=== PATIENT | female | born 1955 | race Caucasian/White ===

== ENCOUNTER 2017-01-21 13:08 | Inpatient (IN) | payer OTHER ==
--- NOTE | 2017-01-21 13:15 | EDM.PDOC ---
ED HPI GENERAL MEDICAL PROBLEM - General Chief Complaint: Gastrointestinal Problem Stated Complaint: VOMITING Time Seen by Provider: 01/21/17 13:13 Source of Information: Reports: Patient History Limitations: Reports: No Limitations - History of Present Illness INITIAL COMMENTS - FREE TEXT/NARRATIVE: HISTORY AND PHYSICAL: []61-year-old female with a cast on her right foot /ankle presents with vomiting last night History of Present Illness: []Cast was placed on her foot 5 days ago. In [place], [place] Abdominal pain and vomiting since last night. Patient has been vomiting every time she has had pain medicine. Patient has not had a bowel movement for the last 5 days. Current medication includes [place], aspirin dulcosate. Patient has had a hysterectomy and bladder sling Review of Systems: As per history of present illness and below otherwise all systems reviewed and negative. Past medical history: As per history of present illness and as reviewed below otherwise noncontributory. Surgical history: As per history of present illness and as reviewed below otherwise noncontributory. Social history: No reported history of drug or alcohol abuse. Family history: As per history of present illness and as reviewed below otherwise noncontributory. Physical exam: Alert and oriented female looks to be in mild distress. Speaking in 3-4 words at a time, some shortness of breath present. HEENT: Atraumatic, normocehpalic, pupils reactive, negative for conjunctival pallor or scleral icterus, mucous membranes moist, throat clear, neck supple, nontender, trachea midline. Lungs: Clear to auscultation, breath sounds equal bilaterally, chest non tender. Heart: S1S2, regular, negative for clicks, rubs, or JVD. Abdomen: Soft, nondistended, tenderness generalized. Negative for masses or hepatossplenmegaly. Negative for costovertebral tenderness. Pelvis: Stable nontender. Genitourinary: Deferred. Rectal: Deferred Extremities: Atraumatic, negative for cords or calf pain. Neurovascular unremarkable. Neuro: Awake, alert, oriented. Cranial nerves II through XII unremarkable. Cerebellum unremarkable. Motor and sensory unremarkable throughout. Exam nonfocal. Dr. Arango has kindly seen this patient as well, he had a discussion with Dr. Spicer regarding patient with bowel obstruction. He Dr. Cabrera is in agreement for admission of this patient. Have discussed with the patient and her daughter her bowel obstruction and they are in agreement for admission to the hospital. Diagnostics: [CBC CMP amylase lipase lactic acid chest x-ray abdomen pelvis CT with contrast] Therapeutics: [IV fluid Zofran] Impression: [Vomiting] Plan: [Admit to Dr. Spicer] Definitive disposition and diagnosis as appropriate pending reevaluation and review of above. Abdominal Pain Score (Numeric/FACES): 9 - Related Data Allergies Allergy/AdvReac Type Severity Reaction Status Date / Time No Known Allergies Allergy Verified 01/21/17 13:11 Home Meds: Home Meds Aspirin 81 mg PO DAILY 01/21/17 [History] Docusate Sodium 01/21/17 [History] Hydrocodone/Acetaminophen [[place] 5-325] 1 tab PO Q4HR PRN 01/21/17 [History] ED ROS GENERAL - Review of Systems Review Of Systems: ROS reveals no pertinent complaints other than HPI. ED EXAM, GI/ABD - Physical Exam Exam: See Below (see dictation) Course - Vital Signs Last Recorded V/S: Last Vital Signs Temp 36.7 C 01/21/17 15:15 Pulse 92 01/21/17 15:15 Resp 20 01/21/17 15:15 BP 147/86 H 01/21/17 15:15 Pulse Ox 99 01/21/17 15:15 - Orders/Labs/Meds Orders: Active Orders 24 hr Category Date Time Status EKG Documentation Completion [RC] STAT Care 01/21/17 13:18 Active CULTURE URINE [RM] Stat Lab 01/21/17 13:18 Uncollected UA W/O MICROSCOPIC [URIN] Stat Lab 01/21/17 13:18 Uncollected Sodium Chloride 0.9% [Normal Saline] 1,000 ml Med 01/21/17 15:12 Active IV STAT Sodium Chloride 0.9% [Saline Flush] Med 01/21/17 13:18 Active 10 ml FLUSH ASDIRECTED PRN Sodium Chloride 0.9% [Saline Flush] Med 01/21/17 13:23 Active 10 ml FLUSH ASDIRECTED PRN Sodium Chloride 0.9% [Saline Flush] Med 01/21/17 13:18 Active 2.5 ml FLUSH ASDIRECTED PRN Sodium Chloride 0.9% [Saline Flush] Med 01/21/17 13:23 Active 2.5 ml FLUSH ASDIRECTED PRN NG [Nasogastric Orogastric Tube Insertion] [OM.PC] Stat Ot 01/21/17 15:34 Ordered Saline Lock Insert [OM.PC] Stat Ot 01/21/17 13:18 Ordered Saline Lock Insert [OM.PC] Stat Ot 01/21/17 13:23 Ordered Medication Orders Sodium Chloride (Normal Saline) 1,000 mls @ 999 mls/hr IV STAT ONE Stop: 01/21/17 16:12 Sodium Chloride (Saline Flush) 10 ml FLUSH ASDIRECTED PRN PRN Reason: Keep Vein Open Sodium Chloride (Saline Flush) 2.5 ml FLUSH ASDIRECTED PRN PRN Reason: Keep Vein Open Sodium Chloride (Saline Flush) 10 ml FLUSH ASDIRECTED PRN PRN Reason: Keep Vein Open Sodium Chloride (Saline Flush) 2.5 ml FLUSH ASDIRECTED PRN PRN Reason: Keep Vein Open Labs: Laboratory Tests 01/21/17 01/21/17 01/21/17 Range/Units 13:35 13:35 13:35 WBC 8.30 (4.0-11.0) K/uL RBC 5.13 (4.30-5.90) M/uL Hgb 15.3 (12.0-16.0) g/dL Hct 43.8 (36.0-46.0) % MCV 85.4 (80.0-98.0) fL MCH 29.8 (27.0-32.0) pg MCHC 34.9 (31.0-37.0) g/dL RDW Std Deviation 40.6 (28.0-62.0) fl RDW Coeff of Beti 13 (11.0-15.0) % Plt Count 430 H (150-400) K/uL MPV 9.70 (7.40-12.00) fL Neut % (Auto) 76.2 (48.0-80.0) % Lymph % (Auto) 11.4 L (16.0-40.0) % [place] % (Auto) 12.2 (0.0-15.0) % Eos % (Auto) 0.1 (0.0-7.0) % Baso % (Auto) 0.1 (0.0-1.5) % Neut # (Auto) 6.3 H (1.4-5.7) K/uL Lymph # (Auto) 1.0 (0.6-2.4) K/uL C[place] # (Auto) 1.0 H (0.0-0.8) K/uL Eos # (Auto) 0.0 (0.0-0.7) K/uL Baso # (Auto) 0.0 (0.0-0.1) K/uL Nucleated RBC % 0.0 /100WBC Nucleated RBCs # 0 K/uL Lactate 2.8 H (0.20-2.00) mmol/L Sodium 138 (136-146) mmol/L Potassium 3.8 (3.5-5.1) mmol/L Chloride 97 L (98-110) mmol/L Carbon Dioxide 21 (21-31) mmol/L BUN 12 (6.0-23.0) mg/dL Creatinine 0.8 (0.6-1.5) mg/dL Est Cr Clr Drug Dosing 77.18 mL/min Estimated GFR (MDRD) > 60.0 ml/min Glucose 141 H (60-110) mg/dL Calcium 10.3 (8.8-10.8) mg/dL Total Bilirubin 1.5 (0.1-1.5) mg/dL AST 73 H (5-40) IU/L ALT 100 H (8-54) IU/L Alkaline Phosphatase 160 H (40-150) Troponin I (0.0-0.29) NG/ML Total Protein 8.0 (6.0-8.0) g/dL Albumin 4.6 (3.4-4.8) g/dL Globulin 3.4 (2.0-3.5) g/dL Albumin/Globulin Ratio 1.4 (1.3-2.8) Amylase 33 (10-90) U/L Lipase 11 (7-80) U/L 01/21/17 Range/Units 13:35 WBC (4.0-11.0) K/uL RBC (4.30-5.90) M/uL Hgb (12.0-16.0) g/dL Hct (36.0-46.0) % MCV (80.0-98.0) fL MCH (27.0-32.0) pg MCHC (31.0-37.0) g/dL RDW Std Deviation (28.0-62.0) fl RDW Coeff of Beti (11.0-15.0) % Plt Count (150-400) K/uL MPV (7.40-12.00) fL Neut % (Auto) (48.0-80.0) % Lymph % (Auto) (16.0-40.0) % [place] % (Auto) (0.0-15.0) % Eos % (Auto) (0.0-7.0) % Baso % (Auto) (0.0-1.5) % Neut # (Auto) (1.4-5.7) K/uL Lymph # (Auto) (0.6-2.4) K/uL Cid[place] # (Auto) (0.0-0.8) K/uL Eos # (Auto) (0.0-0.7) K/uL Baso # (Auto) (0.0-0.1) K/uL Nucleated RBC % /100WBC Nucleated RBCs # K/uL Lactate (0.20-2.00) mmol/L Sodium (136-146) mmol/L Potassium (3.5-5.1) mmol/L Chloride (98-110) mmol/L Carbon Dioxide (21-31) mmol/L BUN (6.0-23.0) mg/dL Creatinine (0.6-1.5) mg/dL Est Cr Clr Drug Dosing mL/min Estimated GFR (MDRD) ml/min Glucose (60-110) mg/dL Calcium (8.8-10.8) mg/dL Total Bilirubin (0.1-1.5) mg/dL AST (5-40) IU/L ALT (8-54) IU/L Alkaline Phosphatase (40-150) Troponin I < 0.10 (0.0-0.29) NG/ML Total Protein (6.0-8.0) g/dL Albumin (3.4-4.8) g/dL Globulin (2.0-3.5) g/dL Albumin/Globulin Ratio (1.3-2.8) Amylase (10-90) U/L Lipase (7-80) U/L Meds: Medications Generic Name Dose Route Start Last Admin Trade Name Freq PRN Reason Stop Dose Admin Sodium Chloride 1,000 mls @ 999 mls/hr 01/21/17 15:12 Normal Saline IV 01/21/17 16:12 STAT ONE Sodium Chloride 10 ml 01/21/17 13:18 Saline Flush FLUSH ASDIRECTED PRN Keep Vein Open Sodium Chloride 2.5 ml 01/21/17 13:18 Saline Flush FLUSH ASDIRECTED PRN Keep Vein Open Sodium Chloride 10 ml 01/21/17 13:23 Saline Flush FLUSH ASDIRECTED PRN Keep Vein Open Sodium Chloride 2.5 ml 01/21/17 13:23 Saline Flush FLUSH ASDIRECTED PRN Keep Vein Open Discontinued Medications Generic Name Dose Route Start Last Admin Trade Name Freq PRN Reason Stop Dose Admin Sodium Chloride 1,000 mls @ 999 mls/hr 01/21/17 13:23 01/21/17 13:38 Normal Saline IV 01/21/17 14:23 999 mls/hr STAT ONE Administration Iopamidol 100 ml 01/21/17 14:48 01/21/17 14:51 Isovue Multipack-370 (76%) IVPUSH 01/21/17 14:49 100 ml ONETIME STA Administration Ondansetron HCl 8 mg 01/21/17 13:22 01/21/17 13:39 Zofran IVPUSH 01/21/17 13:23 8 mg ONETIME ONE Administration Departure - Departure Time of Disposition: 15:39 Disposition: Admitted As Inpatient 66 Condition: Fair Clinical Impression: Abdominal pain, Small bowel obstruction - Discharge Information Referrals: PCP,None [Primary Care Provider] - Forms: ED Department Discharge - My Orders Last 24 Hours: My Active Orders 01/21/17 13:18 EKG Documentation Completion [RC] STAT CULTURE URINE [RM] Stat UA W/O MICROSCOPIC [URIN] Stat Sodium Chloride 0.9% [Saline Flush] 10 ml FLUSH ASDIRECTED PRN Sodium Chloride 0.9% [Saline Flush] 2.5 ml FLUSH ASDIRECTED PRN Saline Lock Insert [OM.PC] Stat 01/21/17 13:23 Sodium Chloride 0.9% [Saline Flush] 10 ml FLUSH ASDIRECTED PRN Sodium Chloride 0.9% [Saline Flush] 2.5 ml FLUSH ASDIRECTED PRN Saline Lock Insert [OM.PC] Stat 01/21/17 15:12 Sodium Chloride 0.9% [Normal Saline] 1,000 ml IV STAT 01/21/17 15:34 NG [Nasogastric Orogastric Tube Insertion] [OM.PC] Stat - Assessment/Plan Last 24 Hours: My Active Orders 01/21/17 13:18 EKG Documentation Completion [RC] STAT CULTURE URINE [RM] Stat UA W/O MICROSCOPIC [URIN] Stat Sodium Chloride 0.9% [Saline Flush] 10 ml FLUSH ASDIRECTED PRN Sodium Chloride 0.9% [Saline Flush] 2.5 ml FLUSH ASDIRECTED PRN Saline Lock Insert [OM.PC] Stat 01/21/17 13:23 Sodium Chloride 0.9% [Saline Flush] 10 ml FLUSH ASDIRECTED PRN Sodium Chloride 0.9% [Saline Flush] 2.5 ml FLUSH ASDIRECTED PRN Saline Lock Insert [OM.PC] Stat 01/21/17 15:12 Sodium Chloride 0.9% [Normal Saline] 1,000 ml IV STAT 01/21/17 15:34 NG [Nasogastric Orogastric Tube Insertion] [OM.PC] Stat
[2017-01-21] MEDS ORDERED: Sodium Chloride 0.9% 2.5 ML Syringe FLUSH PRN ×2 (13:18→13:23)
[2017-01-21] MEDS ORDERED: Sodium Chloride 0.9% 10 ML Syringe FLUSH PRN ×2 (13:18→13:23)
[2017-01-21] MEDS ORDERED: Ondansetron 4 MG/2 ML SDV IVPUSH ONE (13:22)
[2017-01-21] MEDS ORDERED: Sodium Chloride 0.9% 1,000 ML IV ONE ×3 (13:23→15:35)
[2017-01-21 14:14] LABS: CHLORIDE,CL 97 mmol/L (98-110); SODIUM,NA 138 mmol/L (136-146)
[2017-01-21] MEDS ORDERED: Iopamidol 755 MG/ML 500 ML Multipack Bottle IVPUSH STA (14:48)
--- NOTE | 2017-01-21 14:59 | CR ---
EXAMINATION: Two-view chest (PA and Lateral views). HISTORY: Shortness of breath. FINDINGS: The trachea is midline. The cardiomediastinal silhouette is within normal limits. No pulmonary infilt rates, effusions or pneumothorax. Osseous structures appear unremarkable. IMPRESSION: No acute cardiopulmonary process.
--- NOTE | 2017-01-21 15:22 | CT ---
CT of the abdomen and pelvis with contrast. HISTORY: Pain TECHNIQUE: Axial CT images were obtained of the abdomen and pelvis following administration of 100 mL of Isovue-370 in the right wrist without complication. Coronal and sagittal reconstructions obtained . FINDINGS: The lung bases are clear, no pleural effusion. Mild dependent atelectasis. There is mild focal fatty infiltration near the falciform ligament. Gallbladder, spleen, and adrenal glands appear normal. Pancreas appears grossly unremarkable. No bulky retroperitoneal lymphadenopathy or abdominal ascites. The kidneys enhance and function symmetrically without evidence of obstructive uropathy. There is a m ild prominence of the left ureter without obvious obstruction. Small renal cortical cysts are noted. The colon is mostly decompressed. The stomach and proximal small bowel are dilated with a gentle zamarripa sition point within the mid abdomen best visualized on coronal images 31 through 40. The urinary blad alberto is minimally filled. Hysterectomy. No bulky pelvic lymphadenopathy or free pelvic fluid. No suspicious osseous abnormalities identified. IMPRESSION: 1. Dilated loops of proximal small bowel with a transition point within the mid abdomen consistent wi th an early mechanical small bowel obstruction.
[2017-01-21] MEDS: Sodium Chloride 0.9% 1,000 ML IV SCH ×2 (17:39→23:39)
--- NOTE | 2017-01-21 17:59 | PCM.SN ---
- Free Text/Narrative Note: pt seen, chart reviewed; abd pain/n/v, 4 days postop from orthopedic procedure, and took down 8 - 10 tabs of percocet every days, and no leukocytosis; would ngt decompression X 12 hrs, if no improvement, would benefit from laparotomy;
[2017-01-21] MEDS: Pantoprazole 40 MG in Sodium Chloride 0.9% 10 ML IVPUSH SCH (18:27)
[2017-01-21] MEDS: Ondansetron 4 MG/2 ML SDV IVPUSH PRN (22:22)
[2017-01-21] MEDS ORDERED: Acetaminophen 650 MG Supp RECTAL PRN (23:17)
[2017-01-21] MEDS ORDERED: Acetaminophen 650 MG Supp RECTAL ONE (23:17)
--- NOTE | 2017-01-21 23:56 | HP ---
DATE OF : 1955 PRIMARY CARE PHYSICIAN: None PCP ADMISSION DIAGNOSIS: Bowel obstruction. HISTORY OF PRESENT ILLNESS: The patient is a 61-year-old woman and is on a job injury to her right foot and subsequently had surgery performed on her right foot in [place], [place] 4 days ago. Postop, she was discharged home on the same day and she was not feeling good on her abdomen. At home, she started to take some liquid diet and was able to do only the first one and start from the second one on the same day she had emisis, and could not keep anything down. She started to throw up and she has been throwing up on , Saturday, Saturday, Saturday, and Saturday. On top of this, her last bowel movement was 7 days ago before her foot surgery and she has a long history of constipation even in childhood. After the surgery, she was taking about 8-10 tablets of Percocet for pain management for the last 4 days and she did not take any pain medication today. Continuous to throw up and abdominal pain drove her to the emergency room and got a CAT scan that showed a gentle transition point and Surgery was consulted. Currently, the patient remarked the pain is about 5/10, does not feel nauseated, and is not hungry and she remarked she passed gas yesterday before coming to the emergency room. Again, no bowel movement X 7 days. PAST MEDICAL HISTORY: Significant for no diabetes, GA, CVA, or hypertension. PAST SURGICAL HISTORY: The patient has BSO and UMESH with bladder tuck from a Pfannenstiel incision. ALLERGIES: Please refer to nursing for details. MEDICATIONS: Please refer to nursing for details. PHYSICAL EXAMINATION: GENERAL: A very pleasant nice lady, even smiled to the doctor, and in no acute distress. HEENT: Normocephalic, atraumatic. Sclerae anicteric. LUNGS: Clear to auscultation. HEART: Regular rate and rhythm. ABDOMEN: Soft, nondistended. No pulsating tender midline abdominal structure. Very decreased bowel sounds in all 4 quadrants. LABORATORY DATA: Upon consultation, white count is 8 and H and H are 15 and 44, platelet is 430. BUN is 12, creatinine is 0.8, and lactate is 2.8. AST and ALT are elevated mildly at 73 and 100. Alkaline phosphatase is 140. Amylase and lipase are normal at 33 and 11. Albumin is normal at 4.6. CAT scan: Gentle transition on the mid-abdomen. IMPRESSION: The patient is 4 days from surgery and at her age taking about 8-10 tablets of narcotic may cause ileus. She did admit she passed gas and she does not have elevated white count. We will start an NG tube and put in continuous low wall suction and repeat the blood work in the morning. If there is no improvement, the patient probably would benefit from exploratory laparotomy for mechanical bowel obstruction. A long discussion with patient with her situation, narcotic use, and constant history of constipation, this all could be resolved with NG tube decompression. If it happens, should drop surgery. If it does not happen, she would probably need surgery. The patient voiced understanding and agreed to the plan, and we will put her on n.p.o., NG tube low wall suction, repeat blood work, repeat three-way up, repeat abdominal series with serial abdominal exam. As always, thank you for the kind referral. EDWARDO BRADFORD /[id number] JEVON
[2017-01-22 05:57] LABS: CHLORIDE,CL 104 mmol/L (98-110); SODIUM,NA 143 mmol/L (136-146)
[2017-01-22] MEDS: Sodium Chloride 0.9% 1,000 ML IV SCH ×2 (07:51→22:41)
--- NOTE | 2017-01-22 08:18 | PCM.SURGPN ---
- General Info Date of Service: 01/22/17 Post-Op Diagnosis: sbo vs ileus Functional Status: Reports: Pain Controlled (pt passing gas and had a low grad tem, no nausea) - Review of Systems Gastrointestinal: Reports: No Symptoms - Patient Data Vitals - Most Recent: Last Vital Signs Temp 99.9 F 01/22/17 08:00 Pulse 112 H 01/22/17 08:00 Resp 16 01/22/17 08:00 BP 118/73 01/22/17 08:00 Pulse Ox 93 L 01/22/17 08:00 Weight - Most Recent: 218 lb 6.4 oz I&O - Last 24 Hours: Intake & Output 01/21/17 01/22/17 01/22/17 22:59 06:59 14:59 Intake Total 10 1000 Output Total 750 Balance 10 250 Lab Results Last 24 Hrs: Laboratory Results - last 24 hr 01/21/17 01/21/17 01/21/17 Range/Units 18:00 19:31 19:31 WBC (4.0-11.0) K/uL RBC (4.30-5.90) M/uL Hgb (12.0-16.0) g/dL Hct (36.0-46.0) % MCV (80.0-98.0) fL MCH (27.0-32.0) pg MCHC (31.0-37.0) g/dL RDW Std Deviation (28.0-62.0) fl RDW Coeff of Beti (11.0-15.0) % Plt Count (150-400) K/uL MPV (7.40-12.00) fL Add Manual Diff Neutrophils % (Manual) (48.0-80.0) % Band Neutrophils % % Lymphocytes % (Manual) (16.0-40.0) % Monocytes % (Manual) (0.0-15.0) % Nucleated RBC % /100WBC Absolute Seg Neuts Band Neutrophils # Lymphocytes # (Manual) Monocytes # (Manual) Nucleated RBCs # K/uL Lactate 0.9 (0.20-2.00) mmol/L Sodium (136-146) mmol/L Potassium (3.5-5.1) mmol/L Chloride (98-110) mmol/L Carbon Dioxide (21-31) mmol/L BUN (6.0-23.0) mg/dL Creatinine (0.6-1.5) mg/dL Est Cr Clr Drug Dosing mL/min Estimated GFR (MDRD) ml/min Glucose (60-110) mg/dL Calcium (8.8-10.8) mg/dL Total Bilirubin (0.1-1.5) mg/dL AST (5-40) IU/L ALT (8-54) IU/L Alkaline Phosphatase (40-150) Troponin I < 0.10 (0.0-0.29) NG/ML Total Protein (6.0-8.0) g/dL Albumin (3.4-4.8) g/dL Globulin (2.0-3.5) g/dL Albumin/Globulin Ratio (1.3-2.8) Amylase (10-90) U/L Lipase (7-80) U/L Urine Color YELLOW Urine Appearance CLEAR Urine pH 8.5 H (5.0-8.0) Ur Specific Paige <= 1.005 (1.001-1.035) Urine Protein NEGATIVE (NEGATIVE) mg/dL Urine Glucose (UA) NEGATIVE (NEGATIVE) mg/dL Urine Ketones >=80 (NEGATIVE) mg/dL Urine Occult Blood TRACE-INTACT (NEGATIVE) Urine Nitrite NEGATIVE (NEGATIVE) Urine Bilirubin NEGATIVE (NEGATIVE) Urine Urobilinogen 0.2 (<2.0) EU/dL Ur Leukocyte Esterase NEGATIVE (NEGATIVE) 01/22/17 01/22/17 01/22/17 Range/Units 01:06 05:23 05:23 WBC 4.91 (4.0-11.0) K/uL RBC 4.56 (4.30-5.90) M/uL Hgb 13.7 (12.0-16.0) g/dL Hct 39.7 (36.0-46.0) % MCV 87.1 (80.0-98.0) fL MCH 30.0 (27.0-32.0) pg MCHC 34.5 (31.0-37.0) g/dL RDW Std Deviation 42.5 (28.0-62.0) fl RDW Coeff of Beti 13 (11.0-15.0) % Plt Count 389 (150-400) K/uL MPV 9.50 (7.40-12.00) fL Add Manual Diff YES Neutrophils % (Manual) 55 (48.0-80.0) % Band Neutrophils % 9 % Lymphocytes % (Manual) 28 (16.0-40.0) % Monocytes % (Manual) 8 (0.0-15.0) % Nucleated RBC % 0.0 /100WBC Absolute Seg Neuts 2.7 Band Neutrophils # 0.4 Lymphocytes # (Manual) 1.4 Monocytes # (Manual) 0.4 Nucleated RBCs # 0 K/uL Lactate (0.20-2.00) mmol/L Sodium 143 (136-146) mmol/L Potassium 3.2 L (3.5-5.1) mmol/L Chloride 104 (98-110) mmol/L Carbon Dioxide 24 (21-31) mmol/L BUN 18 (6.0-23.0) mg/dL Creatinine 0.8 (0.6-1.5) mg/dL Est Cr Clr Drug Dosing 77.18 mL/min Estimated GFR (MDRD) > 60.0 ml/min Glucose 131 H (60-110) mg/dL Calcium 8.7 L (8.8-10.8) mg/dL Total Bilirubin 1.0 (0.1-1.5) mg/dL AST 52 H (5-40) IU/L ALT 84 H (8-54) IU/L Alkaline Phosphatase 128 (40-150) Troponin I < 0.10 (0.0-0.29) NG/ML Total Protein 6.3 (6.0-8.0) g/dL Albumin 4.0 (3.4-4.8) g/dL Globulin 2.3 (2.0-3.5) g/dL Albumin/Globulin Ratio 1.7 (1.3-2.8) Amylase 22 (10-90) U/L Lipase 13 (7-80) U/L Urine Color Urine Appearance Urine pH (5.0-8.0) Ur Specific Paige (1.001-1.035) Urine Protein (NEGATIVE) mg/dL Urine Glucose (UA) (NEGATIVE) mg/dL Urine Ketones (NEGATIVE) mg/dL Urine Occult Blood (NEGATIVE) Urine Nitrite (NEGATIVE) Urine Bilirubin (NEGATIVE) Urine Urobilinogen (<2.0) EU/dL Ur Leukocyte Esterase (NEGATIVE) Med Orders - Current: Current Medications Acetaminophen (Tylenol) 650 mg RECTAL Q6H PRN PRN Reason: fever temp 101.5F or more Pantoprazole Sodium 40 mg/ (Sodium Chloride) 10 mls @ 300 mls/hr IVPUSH DAILY [facility] Last Admin: 01/21/17 18:27 Dose: 300 mls/hr Sodium Chloride (Normal Saline) 1,000 mls @ 125 mls/hr IV ASDIRECTED [facility] Last Admin: 01/22/17 07:51 Dose: 125 mls/hr Ondansetron HCl (Zofran) 4 mg IVPUSH Q8H PRN PRN Reason: Nausea/Vomiting Last Admin: 01/21/17 22:22 Dose: 4 mg Sodium Chloride (Saline Flush) 10 ml FLUSH ASDIRECTED PRN PRN Reason: Keep Vein Open Sodium Chloride (Saline Flush) 2.5 ml FLUSH ASDIRECTED PRN PRN Reason: Keep Vein Open Sodium Chloride (Saline Flush) 10 ml FLUSH ASDIRECTED PRN PRN Reason: Keep Vein Open Sodium Chloride (Saline Flush) 2.5 ml FLUSH ASDIRECTED PRN PRN Reason: Keep Vein Open Discontinued Medications Acetaminophen (Tylenol) 650 mg RECTAL NOW ONE Stop: 01/21/17 23:18 Last Admin: 01/21/17 23:37 Dose: 650 mg Sodium Chloride (Normal Saline) 1,000 mls @ 999 mls/hr IV STAT ONE Stop: 01/21/17 14:23 Last Admin: 01/21/17 13:38 Dose: 999 mls/hr Sodium Chloride (Normal Saline) 1,000 mls @ 999 mls/hr IV STAT ONE Stop: 01/21/17 16:12 Last Admin: 01/21/17 15:15 Dose: 999 mls/hr Sodium Chloride (Normal Saline) 1,000 mls @ 999 mls/hr IV STAT ONE Stop: 01/21/17 16:35 Last Admin: 01/21/17 16:30 Dose: 999 mls/hr Iopamidol (Isovue Multipack-370 (76%)) 100 ml IVPUSH ONETIME STA Stop: 01/21/17 14:49 Last Admin: 01/21/17 14:51 Dose: 100 ml Ondansetron HCl (Zofran) 8 mg IVPUSH ONETIME ONE Stop: 01/21/17 13:23 Last Admin: 01/21/17 13:39 Dose: 8 mg - Exam GI/Abdominal Exam: Soft, Non-Tender (wbc 4, lactic wnl, k= 3.2), No Distention - Problem List Review Problem List Initiated/Reviewed/Updated: Yes - My Orders Last 24 Hours: Active Orders 24 hr Category Date Time Status Daily Weight [Height and Weight] [RC] DAILY Care 01/21/17 17:27 Active Insert Francois Catheter [Insert Urinary Catheter] [OM.PC] Care 01/22/17 06:15 Ordered Q24H NG [Gastrointestinal Tube Mgmt] [RC] Q4H Care 01/21/17 17:27 Active Urinary Catheter Assessment [] ASDIRECTED Care 01/22/17 06:12 Active NPO [Nothing Per Oral Diet] [DIET] Diet 01/21/17 Dinner Active Chest 1V Frontal [CR] Stat Exams 01/21/17 17:35 Taken Acetaminophen [Tylenol] Med 01/21/17 23:17 Active 650 mg RECTAL Q6H PRN Ondansetron [Zofran] Med 01/21/17 17:35 Active 4 mg IVPUSH Q8H PRN Pantoprazole [ProTONIX IV] 40 mg Med 01/21/17 17:30 Active Sodium Chloride 0.9% [Normal Saline] 10 ml IVPUSH DAILY Sodium Chloride 0.9% [Normal Saline] 1,000 ml Med 01/21/17 17:45 Active IV ASDIRECTED Medication Orders Acetaminophen (Tylenol) 650 mg RECTAL Q6H PRN PRN Reason: fever temp 101.5F or more Pantoprazole Sodium 40 mg/ (Sodium Chloride) 10 mls @ 300 mls/hr IVPUSH DAILY [facility] Last Admin: 01/21/17 18:27 Dose: 300 mls/hr Sodium Chloride (Normal Saline) 1,000 mls @ 125 mls/hr IV ASDIRECTED [facility] Last Admin: 01/22/17 07:51 Dose: 125 mls/hr Infusion: 01/22/17 07:39 Dose: 125 mls/hr Admin: 01/21/17 23:39 Dose: 125 mls/hr Infusion: 01/21/17 23:39 Dose: 125 mls/hr Admin: 01/21/17 17:39 Dose: 125 mls/hr Ondansetron HCl (Zofran) 4 mg IVPUSH Q8H PRN PRN Reason: Nausea/Vomiting Last Admin: 01/21/17 22:22 Dose: 4 mg Sodium Chloride (Saline Flush) 10 ml FLUSH ASDIRECTED PRN PRN Reason: Keep Vein Open Sodium Chloride (Saline Flush) 2.5 ml FLUSH ASDIRECTED PRN PRN Reason: Keep Vein Open Sodium Chloride (Saline Flush) 10 ml FLUSH ASDIRECTED PRN PRN Reason: Keep Vein Open Sodium Chloride (Saline Flush) 2.5 ml FLUSH ASDIRECTED PRN PRN Reason: Keep Vein Open - Assessment Assessment (Free Text/Narrative):: no signs or symptoms of abd pain; passing gas; continue ngt, and september ngt trial tomorrow morning; lab work all returned to normal - Plan Plan (Free Text/Narrative):: no signs or symptoms of abd pain; passing gas; continue ngt, and september ngt trial tomorrow morning; lab work all returned to normal
[2017-01-22] MEDS: Pantoprazole 40 MG in Sodium Chloride 0.9% 10 ML IVPUSH SCH (08:25)
[2017-01-22] MEDS ORDERED: Sodium Chloride 0.9% with KCl 1,000 ML IV SCH (10:30)
[2017-01-22] MEDS ORDERED: Sodium Chloride 0.9% with KCl 1,000 ML IV ONE (10:30)
--- NOTE | 2017-01-22 11:35 | CR ---
EXAM DATE: 01/21/17 PATIENT'S AGE: 61 Patient: DAYLIN MCCLELLAN Facility: [place], [place] Site . Site : [id number] Study: XRay Chest [id number]/18/2017 5:41:44 PM Ordering Physician: Dannielle Rowell Final Report: HISTORY: Post NG tube placement. FINDINGS: Single AP portable chest radiograph demonstrates an NG tube in place. The distal tip is not well seen but is distal to the GE junction. Cardiac silhouette is normal. No consolidation or pleural effusion is seen. IMPRESSION: Tip of the NG tube is not well seen; however, it is distal to the GE junction. Dictated by Cecilia Paz MD @ 01/21/2017 6:28:19 PM Dictated by: Cecilia Paz MD @ 01/21/2017 18:28:38 (Electronic Signature) Report Signed by Proxy. MTDD
--- NOTE | 2017-01-22 16:32 | CR ---
EXAMINATION: Abdomen HISTORY: Small bowel obstruction COMPARISON: CT dated 01/21/2017. TECHNIQUE: AP and upright abdomen films FINDINGS: There is no free air under the diaphragm. Again noted are moderately prominent loops of sma ll bowel measuring up to 4 cm. There is a nasogastric tube noted with tip in the stomach, however the side-port is likely within the distal esophagus. Small pockets of gas are noted within the colon. No calcifications project over the kidneys. Mild dextrocurvature of the lumbar spine. IMPRESSION: 1. Persistent moderately dilated loops of small bowel consistent with a small bowel obstruction. 2. The tip of the nasogastric tube is within the stomach, however the side-port is within the region of the esophagus, this could be advanced approximately 3 cm.
[2017-01-22] MEDS: Ondansetron 4 MG/2 ML SDV IVPUSH PRN (20:10)
[2017-01-23] MEDS: Ondansetron 4 MG/2 ML SDV IVPUSH PRN ×2 (04:17→12:39)
[2017-01-23 06:05] LABS: CHLORIDE,CL 108 mmol/L (98-110); SODIUM,NA 146 mmol/L (136-146)
[2017-01-23] MEDS: Sodium Chloride 0.9% 1,000 ML IV SCH (07:24)
--- NOTE | 2017-01-23 09:18 | CR ---
EXAMINATION: Abdomen HISTORY: Follow-up obstruction COMPARISON: 01/22/2017 TECHNIQUE: AP and upright views FINDINGS: There is no free air under the diaphragm. There is an NG tube noted in good position. There are a few persistent dilated loops of small bowel measuring up to 4 cm, however the number and overa ll degree appear to be improving. There is a similar amount of gas within the colon, however there is a small amount of gas now present within the rectum. Lung bases are clear. No organomegaly. Osseous structures appear stable. IMPRESSION: 1. Persistent however mildly improving small bowel obstruction.
[2017-01-23] MEDS: Pantoprazole 40 MG in Sodium Chloride 0.9% 10 ML IVPUSH SCH (09:49)
--- NOTE | 2017-01-23 11:39 | PCM.SURGPN ---
- General Info Date of Service: 01/23/17 Functional Status: Reports: Pain Controlled - Review of Systems General: Reports: No Symptoms Gastrointestinal: Reports: No Symptoms, Flatus (Pt has been ambulating, and denied abd pain) - Patient Data Vitals - Most Recent: Last Vital Signs Temp 97.9 F 01/23/17 08:00 Pulse 101 H 01/23/17 08:00 Resp 18 01/23/17 08:00 BP 121/75 01/23/17 08:00 Pulse Ox 98 01/23/17 08:00 Weight - Most Recent: 218 lb I&O - Last 24 Hours: Intake & Output 01/22/17 01/23/17 01/23/17 22:59 06:59 14:59 Intake Total 1360 0 1000 Output Total 2250 1500 Balance -890 -1500 1000 Lab Results Last 24 Hrs: Laboratory Results - last 24 hr 01/23/17 01/23/17 Range/Units 05:07 05:07 WBC 5.50 (4.0-11.0) K/uL RBC 4.39 (4.30-5.90) M/uL Hgb 13.0 (12.0-16.0) g/dL Hct 39.2 (36.0-46.0) % MCV 89.3 (80.0-98.0) fL MCH 29.6 (27.0-32.0) pg MCHC 33.2 (31.0-37.0) g/dL RDW Std Deviation 44.9 (28.0-62.0) fl RDW Coeff of Beti 14 (11.0-15.0) % Plt Count 352 (150-400) K/uL MPV 10.20 (7.40-12.00) fL Add Manual Diff YES Neutrophils % (Manual) 45 L (48.0-80.0) % Band Neutrophils % 7 % Lymphocytes % (Manual) 30 (16.0-40.0) % Monocytes % (Manual) 18 H (0.0-15.0) % Nucleated RBC % 0.0 /100WBC Absolute Seg Neuts 2.5 Band Neutrophils # 0.4 Lymphocytes # (Manual) 1.7 Monocytes # (Manual) 1.0 Nucleated RBCs # 0 K/uL Sodium 146 (136-146) mmol/L Potassium 3.8 (3.5-5.1) mmol/L Chloride 108 (98-110) mmol/L Carbon Dioxide 21 (21-31) mmol/L BUN 27 H (6.0-23.0) mg/dL Creatinine 0.8 (0.6-1.5) mg/dL Est Cr Clr Drug Dosing 77.18 mL/min Estimated GFR (MDRD) > 60.0 ml/min Glucose 123 H (60-110) mg/dL Calcium 8.5 L (8.8-10.8) mg/dL Total Bilirubin 1.0 (0.1-1.5) mg/dL AST 42 H (5-40) IU/L ALT 80 H (8-54) IU/L Alkaline Phosphatase 117 (40-150) Total Protein 6.3 (6.0-8.0) g/dL Albumin 3.9 (3.4-4.8) g/dL Globulin 2.4 (2.0-3.5) g/dL Albumin/Globulin Ratio 1.6 (1.3-2.8) Lele Results Last 24 Hrs: Microbiology 01/21/17 18:00 Urine Culture - Final Urine, Clean Catch Klebsiella Pneumoniae Normal Urogenital Micaela Med Orders - Current: Current Medications Acetaminophen (Tylenol) 650 mg RECTAL Q6H PRN PRN Reason: fever temp 101.5F or more Pantoprazole Sodium 40 mg/ (Sodium Chloride) 10 mls @ 300 mls/hr IVPUSH DAILY [facility] Last Admin: 01/23/17 09:49 Dose: 300 mls/hr Sodium Chloride (Normal Saline) 1,000 mls @ 125 mls/hr IV ASDIRECTED [facility] Last Admin: 01/23/17 07:24 Dose: 125 mls/hr Ondansetron HCl (Zofran) 4 mg IVPUSH Q8H PRN PRN Reason: Nausea/Vomiting Last Admin: 01/23/17 04:17 Dose: 4 mg Sodium Chloride (Saline Flush) 10 ml FLUSH ASDIRECTED PRN PRN Reason: Keep Vein Open Sodium Chloride (Saline Flush) 2.5 ml FLUSH ASDIRECTED PRN PRN Reason: Keep Vein Open Sodium Chloride (Saline Flush) 10 ml FLUSH ASDIRECTED PRN PRN Reason: Keep Vein Open Sodium Chloride (Saline Flush) 2.5 ml FLUSH ASDIRECTED PRN PRN Reason: Keep Vein Open Discontinued Medications Acetaminophen (Tylenol) 650 mg RECTAL NOW ONE Stop: 01/21/17 23:18 Last Admin: 01/21/17 23:37 Dose: 650 mg Sodium Chloride (Normal Saline) 1,000 mls @ 999 mls/hr IV STAT ONE Stop: 01/21/17 14:23 Last Admin: 01/21/17 13:38 Dose: 999 mls/hr Sodium Chloride (Normal Saline) 1,000 mls @ 999 mls/hr IV STAT ONE Stop: 01/21/17 16:12 Last Admin: 01/21/17 15:15 Dose: 999 mls/hr Sodium Chloride (Normal Saline) 1,000 mls @ 999 mls/hr IV STAT ONE Stop: 01/21/17 16:35 Last Admin: 01/21/17 16:30 Dose: 999 mls/hr Potassium Chloride/Sodium Chloride (Normal Saline With 40 Meq Kcl) 1,000 mls @ 125 mls/hr IV ONETIME ONE Stop: 01/22/17 18:29 Last Admin: 01/22/17 11:03 Dose: Not Given Potassium Chloride/Sodium Chloride (Normal Saline With 40 Meq Kcl) 1,000 mls @ 125 mls/hr IV ASDIRECTED ÁLVARO Stop: 01/22/17 18:29 Last Admin: 01/22/17 11:03 Dose: 125 mls/hr Iopamidol (Isovue Multipack-370 (76%)) 100 ml IVPUSH ONETIME STA Stop: 01/21/17 14:49 Last Admin: 01/21/17 14:51 Dose: 100 ml Ondansetron HCl (Zofran) 8 mg IVPUSH ONETIME ONE Stop: 01/21/17 13:23 Last Admin: 01/21/17 13:39 Dose: 8 mg - Exam GI/Abdominal Exam: Normal Bowel Sounds, Soft, Non-Tender Physical Findings Comment:: wbc = 5; and passing flatus - Problem List Review Problem List Initiated/Reviewed/Updated: Yes - My Orders Last 24 Hours: Active Orders 24 hr Category Date Time Status Communication Order [RC] PRN Care 01/22/17 18:25 Active Communication Order [RC] ROUTINE Care 01/22/17 13:13 Active Medication Orders Acetaminophen (Tylenol) 650 mg RECTAL Q6H PRN PRN Reason: fever temp 101.5F or more Pantoprazole Sodium 40 mg/ (Sodium Chloride) 10 mls @ 300 mls/hr IVPUSH DAILY [facility] Last Admin: 01/23/17 09:49 Dose: 300 mls/hr Infusion: 01/22/17 08:27 Dose: 300 mls/hr Admin: 01/22/17 08:25 Dose: 300 mls/hr Infusion: 01/21/17 18:29 Dose: 300 mls/hr Admin: 01/21/17 18:27 Dose: 300 mls/hr Sodium Chloride (Normal Saline) 1,000 mls @ 125 mls/hr IV ASDIRECTED ÁLVARO Last Admin: 01/23/17 07:24 Dose: 125 mls/hr Infusion: 01/23/17 06:41 Dose: 125 mls/hr Admin: 01/22/17 22:41 Dose: 125 mls/hr Infusion: 01/22/17 15:51 Dose: 125 mls/hr Admin: 01/22/17 07:51 Dose: 125 mls/hr Infusion: 01/22/17 07:39 Dose: 125 mls/hr Admin: 01/21/17 23:39 Dose: 125 mls/hr Infusion: 01/21/17 23:39 Dose: 125 mls/hr Admin: 01/21/17 17:39 Dose: 125 mls/hr Ondansetron HCl (Zofran) 4 mg IVPUSH Q8H PRN PRN Reason: Nausea/Vomiting Last Admin: 01/23/17 04:17 Dose: 4 mg Admin: 01/22/17 20:10 Dose: 4 mg Admin: 01/21/17 22:22 Dose: 4 mg Sodium Chloride (Saline Flush) 10 ml FLUSH ASDIRECTED PRN PRN Reason: Keep Vein Open Sodium Chloride (Saline Flush) 2.5 ml FLUSH ASDIRECTED PRN PRN Reason: Keep Vein Open Sodium Chloride (Saline Flush) 10 ml FLUSH ASDIRECTED PRN PRN Reason: Keep Vein Open Sodium Chloride (Saline Flush) 2.5 ml FLUSH ASDIRECTED PRN PRN Reason: Keep Vein Open - Assessment Assessment (Free Text/Narrative):: admitted on pod4 from R foot surgery in [facility] for possible bowel obstruction; pt was taking large amt of percocet everyday postop, and WBC was normal. NGT placed, and serial abd exam; pt responded to NGT treatment well, passing flatus, and abd pain resolved on no pain meds; and pt is in fact ambulating at [place]; repeat abd film improved and now with rectal gas and pt is now hungry, asking for po diet; no bowel movement yet; would continue ngt decompression, and serial abd exam, maybe enemas; pt would very much avoid surgery if possible. I myself scheduled for vacation, and my partner will clam picker her care. Pt understanding if failed conservative management, pt would still need to have surgery exploration; if pt continue to improve, pass ngt clamp trial, tolerate po, possible disposition in 2 - 3 days; - Plan Plan (Free Text/Narrative):: admitted on pod4 from R foot surgery in [facility] for possible bowel obstruction; pt was taking large amt of percocet everyday postop, and WBC was normal. NGT placed, and serial abd exam; pt responded to NGT treatment well, passing flatus, and abd pain resolved on no pain meds; and pt is in fact ambulating at [place]; repeat abd film improved and now with rectal gas and pt is now hungry, asking for po diet; no bowel movement yet; would continue ngt decompression, and serial abd exam, maybe enemas; pt would very much avoid surgery if possible. I myself scheduled for vacation, and my partner will clam picker her care. Pt understanding if failed conservative management, pt would still need to have surgery exploration; if pt continue to improve, pass ngt clamp trial, tolerate po, possible disposition in 2 - 3 days;
[2017-01-23] MEDS ORDERED: Magnesium Sulfate/Water 4 GM in Premix Bag 1 BAG IV ONE (13:32)
[2017-01-23] MEDS ORDERED: D5W ONE ×2 (14:00→16:00)
[2017-01-23] MEDS ORDERED: SODIUM PHOSPHATES ONE ×2 (14:00→16:00)
[2017-01-23] MEDS: D5 1/2 NS w/ 20 mEq/L KCl 1,000 ML IV SCH (14:25)
[2017-01-23] MEDS ORDERED: WATER IV ONE ×2 (16:00)
[2017-01-23] MEDS ORDERED: SODIUM PHOSPHATE IV ONE ×2 (16:00)
[2017-01-23] MEDS ORDERED: DEXTROSE IV ONE ×2 (16:00)
[2017-01-24] MEDS: Ondansetron 4 MG/2 ML SDV IVPUSH PRN ×2 (02:14→15:13)
[2017-01-24 05:03] LABS: CHLORIDE,CL 110 mmol/L (98-110); SODIUM,NA 147 mmol/L (136-146)
[2017-01-24] MEDS ORDERED: HYDROmorphone 1 MG/ML Syringe IVPUSH PRN (08:32)
[2017-01-24] MEDS: Pantoprazole 40 MG in Sodium Chloride 0.9% 10 ML IVPUSH SCH (10:16)
[2017-01-24] MEDS: Ciprofloxacin in D5W 200 MG in Premix Bag 1 BAG IV SCH ×4 (10:18→21:04)
[2017-01-24] MEDS: D5 1/2 NS w/ 20 mEq/L KCl 1,000 ML IV SCH ×2 (10:31→23:27)
--- NOTE | 2017-01-24 12:45 | PCM.PN ---
- General Info Date of Service: 01/24/17 Admission Dx/Problem (Free Text): Ileus Subjective Update: Patient had decreased NG output overnight. She has not felt nauseated overnight. She had three bowel movements in total yesterday. Abdomen feels well and denies pain. NG was clamped this morning and patient is tolerating that well. Her right ankle is sore and she is wondering if she can take anything else for the pain. Her UA from admission came back positive. Denies fevers and chills. Her VS were stable overnight. - Review of Systems General: Reports: No Symptoms Pulmonary: Reports: No Symptoms Gastrointestinal: Reports: No Symptoms Genitourinary: Reports: No Symptoms - Patient Data Vitals - Most Recent: Last Vital Signs Temp 36.6 C 01/24/17 12:11 Pulse 94 01/24/17 12:11 Resp 12 01/24/17 12:11 BP 142/80 H 01/24/17 12:11 Pulse Ox 93 L 01/24/17 08:50 Weight - Most Recent: 218.5 kg I&O - Last 24 Hours: Intake & Output 01/23/17 01/24/17 01/24/17 22:59 06:59 14:59 Intake Total 500 1010 Output Total 950 1350 Balance -950 -850 1010 Lab Results Last 24 Hours: Laboratory Results - last 24 hr 01/23/17 01/24/17 Range/Units 05:05 04:33 Sodium 147 H (136-146) mmol/L Potassium 3.2 L (3.5-5.1) mmol/L Chloride 110 (98-110) mmol/L Carbon Dioxide 26 (21-31) mmol/L BUN 26 H (6.0-23.0) mg/dL Creatinine 0.7 (0.6-1.5) mg/dL Est Cr Clr Drug Dosing 88.20 mL/min Estimated GFR (MDRD) > 60.0 ml/min Glucose 135 H (60-110) mg/dL Calcium 8.2 L (8.8-10.8) mg/dL Phosphorus 2.3 L 2.7 (2.4-4.7) mg/dL Magnesium 1.7 2.1 (1.5-2.3) mEq/L Lele Results Last 24 Hours: Microbiology 01/21/17 18:00 Urine Culture - Final Urine, Clean Catch Klebsiella Pneumoniae Normal Urogenital Micaela Med Orders - Current: Current Medications Acetaminophen (Tylenol) 650 mg RECTAL Q6H PRN PRN Reason: fever temp 101.5F or more Hydromorphone HCl (Dilaudid) 0.5 mg IVPUSH Q4H PRN PRN Reason: Pain Last Admin: 01/24/17 12:28 Dose: 0.5 mg Pantoprazole Sodium 40 mg/ (Sodium Chloride) 10 mls @ 300 mls/hr IVPUSH DAILY [facility] Last Admin: 01/24/17 10:16 Dose: 300 mls/hr Potassium Chloride/Dextrose/Sod Cl (D5 1/2 Ns W/ 20 Meq/L Kcl) 1,000 mls @ 100 mls/hr IV ASDIRECTED [facility] Last Admin: 01/24/17 10:31 Dose: 100 mls/hr Ciprofloxacin/Dextrose 200 mg/ (Premix) 100 mls @ 100 mls/hr IV Q12H [facility] Last Admin: 01/24/17 10:18 Dose: 100 mls/hr Ondansetron HCl (Zofran) 4 mg IVPUSH Q8H PRN PRN Reason: Nausea/Vomiting Last Admin: 01/24/17 02:14 Dose: 4 mg Sodium Chloride (Saline Flush) 10 ml FLUSH ASDIRECTED PRN PRN Reason: Keep Vein Open Sodium Chloride (Saline Flush) 2.5 ml FLUSH ASDIRECTED PRN PRN Reason: Keep Vein Open Sodium Chloride (Saline Flush) 10 ml FLUSH ASDIRECTED PRN PRN Reason: Keep Vein Open Sodium Chloride (Saline Flush) 2.5 ml FLUSH ASDIRECTED PRN PRN Reason: Keep Vein Open Discontinued Medications Acetaminophen (Tylenol) 650 mg RECTAL NOW ONE Stop: 01/21/17 23:18 Last Admin: 01/21/17 23:37 Dose: 650 mg Sodium Chloride (Normal Saline) 1,000 mls @ 999 mls/hr IV STAT ONE Stop: 01/21/17 14:23 Last Admin: 01/21/17 13:38 Dose: 999 mls/hr Sodium Chloride (Normal Saline) 1,000 mls @ 999 mls/hr IV STAT ONE Stop: 01/21/17 16:12 Last Admin: 01/21/17 15:15 Dose: 999 mls/hr Sodium Chloride (Normal Saline) 1,000 mls @ 999 mls/hr IV STAT ONE Stop: 01/21/17 16:35 Last Admin: 01/21/17 16:30 Dose: 999 mls/hr Sodium Chloride (Normal Saline) 1,000 mls @ 125 mls/hr IV ASDIRECTED [facility] Last Admin: 01/23/17 07:24 Dose: 125 mls/hr Potassium Chloride/Sodium Chloride (Normal Saline With 40 Meq Kcl) 1,000 mls @ 125 mls/hr IV ONETIME ONE Stop: 01/22/17 18:29 Last Admin: 01/22/17 11:03 Dose: Not Given Potassium Chloride/Sodium Chloride (Normal Saline With 40 Meq Kcl) 1,000 mls @ 125 mls/hr IV ASDIRECTED [facility] Stop: 01/22/17 18:29 Last Admin: 01/22/17 11:03 Dose: 125 mls/hr Magnesium Sulfate 4 gm/ Premix 100 mls @ 50 mls/hr IV ONETIME ONE Stop: 01/23/17 15:31 Last Admin: 01/23/17 14:25 Dose: 50 mls/hr Sodium Phosphate 30 mmole/ (Dextrose/Water) 510 mls @ 63.75 mls/hr IV ONETIME ONE Stop: 01/23/17 23:59 Last Admin: 01/23/17 17:29 Dose: 63.75 mls/hr Iopamidol (Isovue Multipack-370 (76%)) 100 ml IVPUSH ONETIME STA Stop: 01/21/17 14:49 Last Admin: 01/21/17 14:51 Dose: 100 ml Ondansetron HCl (Zofran) 8 mg IVPUSH ONETIME ONE Stop: 01/21/17 13:23 Last Admin: 01/21/17 13:39 Dose: 8 mg 30 Mmol Sodium Phosphates In 500ml D5w 1 each .XX ONETIME ONE Stop: 01/23/17 14:01 Last Admin: 01/23/17 17:32 Dose: Not Given 30 Mmol Sodium Phosphates In 500ml D5w 1 each .XX ONETIME ONE Stop: 01/23/17 16:01 Last Admin: 01/23/17 17:32 Dose: Not Given - Exam General: Alert, Oriented Lungs: Normal Respiratory Effort Cardiovascular: Regular Rhythm GI/Abdominal Exam: Soft, Non-Tender, No Organomegaly, No Distention, Other (NG output appears light green to slightly brown ) Skin: Warm, Dry, Intact - Problem List & Annotations (1) Abdominal pain SNOMED Code(s): 56016066 Code(s): R10.9 - UNSPECIFIED ABDOMINAL PAIN Status: Acute Current Visit: Yes (2) Small bowel obstruction SNOMED Code(s): 312663306 Code(s): K56.69 - OTHER INTESTINAL OBSTRUCTION Status: Acute Current Visit: Yes (3) UTI (urinary tract infection) SNOMED Code(s): 74172190 Code(s): N39.0 - URINARY TRACT INFECTION, SITE NOT SPECIFIED Status: Acute Current Visit: Yes - Problem List Review Problem List Initiated/Reviewed/Updated: Yes - My Orders Last 24 Hours: My Active Orders 01/23/17 13:45 D5 1/2 NS w/ 20 mEq/L KCl 1,000 ml IV ASDIRECTED 01/24/17 08:21 NG [Gastrointestinal Tube Mgmt] [RC] ASDIRECTED 01/24/17 08:32 HYDROmorphone [Dilaudid] 0.5 mg IVPUSH Q4H PRN 01/24/17 09:15 Ciprofloxacin in D5W [Cipro in D5W 200 MG/100 ML] 200 mg Premix Bag 1 bag IV Q12H 01/24/17 Dinner Clear Liquid Diet [DIET] 01/25/17 05:11 BASIC METABOLIC PANEL,BMP [CHEM] AM MAGNESIUM [CHEM] AM PHOSPHORUS [CHEM] AM - Plan Plan:: -Advance diet to clears. If tolerated through the day can d/c NG tube this evening. -Continue IVF and IV meds for now. Once she is advanced to a regular diet will make all IV meds, po. -Possible D/C tomorrow if advances to regular diet tomorrow. Ok for patient to have IV dilaudid as needed for pain.
[2017-01-24] MEDS: Acetaminophen 325 MG Tab PO PRN (18:16)
[2017-01-25] MEDS: Acetaminophen 325 MG Tab PO PRN ×2 (02:34→08:52)
[2017-01-25 06:54] LABS: CHLORIDE,CL 110 mmol/L (98-110); SODIUM,NA 144 mmol/L (136-146)
--- NOTE | 2017-01-25 07:46 | PCM.SN ---
- Free Text/Narrative Note: Patient is doing well today. NG has been clamped 24 hours. Will remove NG today and advance diet. All IV pain meds to be switched to po. If tolerating diet and stable will D/C home later today.
[2017-01-25] MEDS ORDERED: diphenhydrAMINE 25 MG Cap PO PRN (07:51)
[2017-01-25] MEDS ORDERED: Phosphorus #1 250 MG Tab PO ONE (07:56)
[2017-01-25] MEDS ORDERED: Magnesium Chloride 64 MG Tab.ER PO ONE (08:00)
[2017-01-25] MEDS ORDERED: Ciprofloxacin 250 MG Tab PO SCH (08:00)
--- NOTE | 2017-01-25 17:37 | PCM.DCSUM1 ---
Discharge Summary - Hospital Course Free Text/Narrative:: Patient is a 61-year-old female who presented after ankle surgery with nausea and vomiting. CT the abdomen pelvis showed evidence of a small bowel obstruction versus ileus. The patient was admitted to the floor with an NG tube to low intermittent suction, IV fluid resuscitation, and bowel rest. Her NG output was initially very high but her vital signs and laboratory work was stable. 2 days ago the patient began having bowel movements. Her NG was clamped which she tolerated very well. The patient requested something for her surgical pain and they gave her IV Dilaudid. She developed flushing and a dizzy feeling with this after which she became nauseated. The IV Dilaudid was stopped. The patient is felt well since. The NG was removed this morning and the patient's been tolerating a regular diet. Her pain is well-controlled currently on Tylenol and she has no desire to start any narcotic pain medications anymore. Her vitals are stable and she is ready for discharge. - Discharge Data Discharge Date: 01/25/17 Discharge Disposition: Home, Self-Care 01 Condition: Good - Discharge Diagnosis/Problem(s) (1) Abdominal pain SNOMED Code(s): 48293986 ICD Code: R10.9 - UNSPECIFIED ABDOMINAL PAIN Status: Acute Current Visit : Yes (2) Small bowel obstruction SNOMED Code(s): 415772948 ICD Code: K56.69 - OTHER INTESTINAL OBSTRUCTION Status: Acute Current Visit: Yes (3) UTI (urinary tract infection) SNOMED Code(s): 44374272 ICD Code: N39.0 - URINARY TRACT INFECTION, SITE NOT SPECIFIED Status: Acute Current Visit: Yes - Patient Instructions Diet: Regular Diet as Tolerated Activity: Rest and Relax Today Driving: Do Not Drive Notify Provider of: Fever, Increased Pain, Nausea and/or Vomiting - Discharge Plan Prescriptions/Med Rec: Ciprofloxacin [Ciprofloxacin HCl] 250 mg PO BID #12 tablet Home Medications: Home Meds Aspirin 81 mg PO DAILY 01/21/17 [History] Docusate Sodium 01/21/17 [History] Ibuprofen 600 mg PO TID PRN 01/21/17 [History] Ciprofloxacin [Ciprofloxacin HCl] 250 mg PO BID #12 tablet 01/25/17 [Rx] Patient Handouts: Small Bowel Obstruction, [id number], Urinary Tract Infection, Adult, [id number], Abdominal Pain, Adult, [id number] Referrals: Padmini Aj MD [Physician] - 01/29/17 9:45 am - General Info Date of Service: 01/25/17 Functional Status: Reports: Pain Controlled, Tolerating Diet, Ambulating, Urinating - Review of Systems General: Reports: No Symptoms Gastrointestinal: Reports: No Symptoms - Patient Data Vitals - Most Recent: Last Vital Signs Temp 36.3 C 01/25/17 12:00 Pulse 87 01/25/17 12:00 Resp 16 01/25/17 12:00 BP 112/64 01/25/17 12:00 Pulse Ox 94 L 01/25/17 12:00 Weight - Most Recent: 99.7 kg I&O - Last 24 hours: Intake & Output 01/25/17 01/25/17 01/25/17 06:59 14:59 22:59 Intake Total 1080 100 Output Total 600 100 Balance 480 0 Lab Results - Last 24 hrs: Laboratory Results - last 24 hr 01/25/17 Range/Units 06:26 Sodium 144 (136-146) mmol/L Potassium 3.4 L (3.5-5.1) mmol/L Chloride 110 (98-110) mmol/L Carbon Dioxide 25 (21-31) mmol/L BUN 20 (6.0-23.0) mg/dL Creatinine 0.7 (0.6-1.5) mg/dL Est Cr Clr Drug Dosing 88.20 mL/min Estimated GFR (MDRD) > 60.0 ml/min Glucose 118 H (60-110) mg/dL Calcium 8.5 L (8.8-10.8) mg/dL Phosphorus 2.2 L (2.4-4.7) mg/dL Magnesium 1.8 (1.5-2.3) mEq/L Med Orders - Current: Current Medications Acetaminophen (Tylenol) 650 mg PO Q6H PRN PRN Reason: Pain Last Admin: 01/25/17 08:52 Dose: 650 mg Ciprofloxacin (Ciprofloxacin Hcl) 250 mg PO BID ÁLVARO Last Admin: 01/25/17 08:22 Dose: 250 mg Diphenhydramine HCl (Benadryl) 25 mg PO Q4H PRN PRN Reason: Itching Ondansetron HCl (Zofran) 4 mg IVPUSH Q8H PRN PRN Reason: Nausea/Vomiting Last Admin: 01/24/17 15:13 Dose: 4 mg Senna/Docusate Sodium (Senna Plus) 1 tab PO BEDTIME ÁLVARO Sodium Chloride (Saline Flush) 10 ml FLUSH ASDIRECTED PRN PRN Reason: Keep Vein Open Sodium Chloride (Saline Flush) 2.5 ml FLUSH ASDIRECTED PRN PRN Reason: Keep Vein Open Discontinued Medications Acetaminophen (Tylenol) 650 mg RECTAL Q6H PRN PRN Reason: fever temp 101.5F or more Acetaminophen (Tylenol) 650 mg RECTAL NOW ONE Stop: 01/21/17 23:18 Last Admin: 01/21/17 23:37 Dose: 650 mg Hydromorphone HCl (Dilaudid) 0.5 mg IVPUSH Q4H PRN PRN Reason: Pain Last Admin: 01/24/17 12:28 Dose: 0.5 mg Sodium Chloride (Normal Saline) 1,000 mls @ 999 mls/hr IV STAT ONE Stop: 01/21/17 14:23 Last Admin: 01/21/17 13:38 Dose: 999 mls/hr Sodium Chloride (Normal Saline) 1,000 mls @ 999 mls/hr IV STAT ONE Stop: 01/21/17 16:12 Last Admin: 01/21/17 15:15 Dose: 999 mls/hr Sodium Chloride (Normal Saline) 1,000 mls @ 999 mls/hr IV STAT ONE Stop: 01/21/17 16:35 Last Admin: 01/21/17 16:30 Dose: 999 mls/hr Pantoprazole Sodium 40 mg/ (Sodium Chloride) 10 mls @ 300 mls/hr IVPUSH DAILY [facility] Last Admin: 01/24/17 10:16 Dose: 300 mls/hr Sodium Chloride (Normal Saline) 1,000 mls @ 125 mls/hr IV ASDIRECTED Á[facility] Last Admin: 01/23/17 07:24 Dose: 125 mls/hr Potassium Chloride/Sodium Chloride (Normal Saline With 40 Meq Kcl) 1,000 mls @ 125 mls/hr IV ONETIME ONE Stop: 01/22/17 18:29 Last Admin: 01/22/17 11:03 Dose: Not Given Potassium Chloride/Sodium Chloride (Normal Saline With 40 Meq Kcl) 1,000 mls @ 125 mls/hr IV ASDIRECTED ÁLVARO Stop: 01/22/17 18:29 Last Admin: 01/22/17 11:03 Dose: 125 mls/hr Magnesium Sulfate 4 gm/ Premix 100 mls @ 50 mls/hr IV ONETIME ONE Stop: 01/23/17 15:31 Last Admin: 01/23/17 14:25 Dose: 50 mls/hr Potassium Chloride/Dextrose/Sod Cl (D5 1/2 Ns W/ 20 Meq/L Kcl) 1,000 mls @ 100 mls/hr IV ASDIRECTED [facility] Last Admin: 01/24/17 23:27 Dose: 100 mls/hr Sodium Phosphate 30 mmole/ (Dextrose/Water) 510 mls @ 63.75 mls/hr IV ONETIME ONE Stop: 01/23/17 23:59 Last Admin: 01/23/17 17:29 Dose: 63.75 mls/hr Ciprofloxacin/Dextrose 200 mg/ (Premix) 100 mls @ 100 mls/hr IV Q12H [facility] Last Admin: 01/24/17 21:04 Dose: 100 mls/hr Iopamidol (Isovue Multipack-370 (76%)) 100 ml IVPUSH ONETIME STA Stop: 01/21/17 14:49 Last Admin: 01/21/17 14:51 Dose: 100 ml Magnesium Chloride (Mag-64) 64 mg PO DAILY ONE Stop: 01/25/17 08:01 Last Admin: 01/25/17 08:22 Dose: 64 mg Ondansetron HCl (Zofran) 8 mg IVPUSH ONETIME ONE Stop: 01/21/17 13:23 Last Admin: 01/21/17 13:39 Dose: 8 mg 30 Mmol Sodium Phosphates In 500ml D5w 1 each .XX ONETIME ONE Stop: 01/23/17 14:01 Last Admin: 01/23/17 17:32 Dose: Not Given 30 Mmol Sodium Phosphates In 500ml D5w 1 each .XX ONETIME ONE Stop: 01/23/17 16:01 Last Admin: 01/23/17 17:32 Dose: Not Given Sodium Chloride (Saline Flush) 10 ml FLUSH ASDIRECTED PRN PRN Reason: Keep Vein Open Sodium Chloride (Saline Flush) 2.5 ml FLUSH ASDIRECTED PRN PRN Reason: Keep Vein Open Sodium Phosphate (Neutra-Phos) 250 mg PO ONETIME ONE Stop: 01/25/17 07:57 Last Admin: 01/25/17 08:22 Dose: 250 mg - Exam General: Reports: Alert, Oriented HEENT: Reports: Pupils Equal, Pupils Reactive Neck: Reports: Supple Lungs: Reports: Normal Respiratory Effort Cardiovascular: Reports: Regular Rhythm GI/Abdominal Exam: Normal Bowel Sounds, Soft, Non-Tender, No Distention Extremities: Normal Inspection, Non-Tender, No Pedal Edema, Normal Capillary Refill *Q Meaningful Use (DIS) - VTE *Q VTE Criteria *Q: - Stroke *Q Stroke Criteria *Q: - AMI *Q AMI Criteria *Q:
[2017-01-25 17:45] VITALS: BP 121/68
== END 2017-01-25 19:00 | disposition home or self-care (01) | DRG 389 ==
LOC: MW.ED 13:08 → MW.MS 15:36
PROVIDERS: ADMIT Surgery; ATTEND Surgery
PROC: 0D9670Z Drainage of Stomach with Drainage Device, Via Natural or Artificial Opening (ICD-10-PCS; principal; 2017-01-21)
DX: K56.69 Other intestinal obstruction (principal); N39.0 Urinary tract infection, site not specified; R10.9 Unspecified abdominal pain; K59.00 Constipation, unspecified; Z98.890 Other specified postprocedural states
CPT/HCPCS: 36415; 43753; 51798; 71010; 71010-26; 71020; 71020-26; 74020; 74020-26; 74177; 74177-26; 80048; 80053; 81003; 82150; 83605; 83690; 83735; 84100; 84484; 85025; 87086; 87088; 87186; 93005; 96361; 96374; 99283; 99285-25; A9270-GY; C9113; J0744; J1170; J2405; J3475; J3480; J7040; J7060; Q9967